=== PATIENT | female | born 1960 | race African-American/Black ===

== ENCOUNTER 2019-08-04 18:26 | Observation (INO) ==
[2019-08-04] MEDS ORDERED: TORADOL IM ONE (18:37)
[2019-08-04 18:59] LABS: BASO# 0.03 X1000 (0.0-0.2); BASO% 0.5 % (0.0-0.8); EOS# 0.11 X1000 (0.0-0.7); EOS% 1.9 % (0.0-10.0); HEMATOCRIT 39.2 % (37.0-47.0); HEMOGLOBIN 12.7 g/dL (12.0-16.0); IMM GRAN# 0.04 X1000 (0.0-0.04); IMM GRAN% 0.7 % (0.0-0.5); LYMPH# 1.84 X1000 (1.2-3.4); LYMPH% 32.1 % (20.5-51.1); MCH 28.9 PG (27-31); MCHC 32.4 g/dL (33-37); MCV 89.1 FL (81-99); MONO# 0.32 X1000 (0.11-0.59); MONO% 5.6 % (1.7-9.3); NEUT% 59.2 % (42.2-75.2); PLT 274 X1000 (130-400); RDW 12.9 % (11.5-14.5); WBC 5.74 X1000 (4.8-10.8)
--- NOTE | 2019-08-04 19:15 | EKG Report ---
Test Performed on : 08/04/2019 6:42:41 PM Test Reason : chest pain Blood Pressure : / mmHG Vent. Rate : 072 BPM Atrial Rate : 072 BPM P-R Int : 148 ms QRS Dur : 070 ms QT Int : 370 ms P-R-T Axes : 046 014 011 degrees QTc Int : 405 ms Normal sinus rhythm. Possible Anterior infarct (cited on or before 28-MAY-2016) Abnormal ECG When compared with ECG of 26-FEB-2017 15:18, No significant change was found Confirmed by Kavin Vásquez MD ([id number]) on 08/20/2019 7:37:24 AM
[2019-08-04 19:19] LABS: AGAP 13; ALBUMIN 4.5 g/dL (3.5-5.0); ALKALINE PHOSPHATASE 92 U/L (32-104); BUN 17 mg/dL (8-22); CALCIUM 9.6 mg/dL (8.8-10.2); CHLORIDE 104 mmol/L (98-107); COSMO 285; CREATININE 0.9 mg/dL (0.5-0.9); ESTIMATED GFR > 60; GLUCOSE 107 mg/dL (70-104); GOT 18 U/L (10-30); GPT 14 U/L (10-36); POTASSIUM 3.8 mmol/L (3.5-5.1); SODIUM 142 mmol/L (136-145); TCO2 25 mmol/L (25-35); TOTAL PROTEIN 7.2 g/dL (6.3-8.3)
--- NOTE | 2019-08-04 19:35 | Diag Imaging Result Doc PS360 ---
EXAM: CHEST-2 VIEWS - 08/04/2019 HISTORY: chest pain TECHNIQUE: Chest two views COMPARISON: 02/26/2017 FINDINGS: Heart size appears within normal limits and stable. There is transvenous cardiac pacemaker again seen. The lungs appear clear. There is no pleural effusion or pneumothorax identified. There are thoracic dextroscoliosis and mild spondylosis noted. IMPRESSION: No evidence of acute disease. Electronically signed by Lan Madrid 08/04/2019 7:32 PM
[2019-08-04] MEDS ORDERED: ASPIRIN PO ONE (19:57)
[2019-08-04] MEDS ORDERED: NITROGLYCERIN SL PRN (19:57)
--- NOTE | 2019-08-04 20:35 | PROVIDER DOCUMENTATION ---
This chart was entered by Jami Kidd Scribe, acting as scribe for Tye Hancock MD. HPI-Chest Pain - General Chief Complaint: Chest Pain Stated Complaint: SOB Time Seen by Provider: 08/04/19 19:48 Source: patient Allergies/Adverse Reactions: Patient Allergies Allergy/AdvReac Type Severity Reaction Status Date / Time Iodinated Contrast Media Allergy Severe ITCHING Verified 11/02/15 11:44 cefuroxime [From Ceftin] Allergy Unknown Verified 02/26/17 16:16 erythromycin base Allergy ITCHING Verified 11/02/15 11:44 tramadol Allergy ITCHING Verified 11/02/15 11:44 Home Medications: Home Medication List Medication Instructions Recorded Confirmed Last Taken Type Albuterol Sulfate [Proair 2 puff INH Q4H PRN 02/26/17 02/26/17 02/26/17 09:00 History Respiclick] Cetirizine HCl [Zyrtec] 10 mg PO DAILY 02/26/17 02/26/17 02/26/17 09:00 History Duloxetine [Cymbalta] 60 mg PO DAILY 02/26/17 02/26/17 02/26/17 09:00 History Fluticasone 50 Mcg Nasal [place] 02/26/17 Unknown History [Flonase] Furosemide [Lasix] 1.5 tab PO BID 02/26/17 02/26/17 02/26/17 09:00 History Gabapentin 300 mg PO TID 02/26/17 02/26/17 02/26/17 09:00 History Hydrocodone/Acetaminophen [[place] 1 tab PO BID PRN 02/26/17 02/26/17 02/26/17 09 :00 History 5-325 Tablet] Lisinopril 10 mg PO DAILY 02/26/17 02/26/17 02/26/17 09:00 History Mometasone/Formoterol [Dulera 200 2 puff INH DAILY 02/26/17 02/26/17 02/26/17 09:00 History Mcg/5 Mcg Inhaler] Naproxen 500 mg PO BID PRN PRN #30 tablet 02/26/17 Unknown Rx Pantoprazole [Protonix] 40 mg PO DAILY@0700 02/26/17 02/26/17 02/26/17 09:00 History Potassium Chloride 2 tab PO DAILY 02/26/17 02/26/17 02/26/17 09:00 History Tizanidine HCl [Zanaflex] 0.5 - 1 tab PO 02/26/17 02/26/17 09:00 History Trazodone [Desyrel] 0.5 - 1 tab PO DAILY PRN 02/26/17 02/26/17 Unknown History Loperamide [Imodium] 2 mg PO PRN PRN #20 cap MDD 6 06/07/19 Unknown Rx capsules Ondansetron Odt [Zofran 4 mg Odt] 4 mg PO Q6H PRN PRN #15 tab 06/07/19 Unknown Rx - History of Present Illness-CP Nature of Presenting Problem: 59 yof c/o left sided cp radiating down left arm starting few hours ago. pt sts pain is sharp in nature and 8/10. pt has hx of HTN, has pacemaker. pt has family hx opf heart dz, and is a nonsmoker. Location: reports: other (left sided) Chest Pain Radiation: reports: arms (left) Quality of Pain: reports: sharp Severity in ED: mild Onset/Duration: 4-6 hours ago Timing: still present Context/Activities at Onset: reports: none Modifying Factors: improves with: nothing Associated Symptoms: denies: nausea, shortness of breath, vomiting Review of Systems - Adult - REVIEW OF SYSTEMS - ADULT Constitutional: reports: no symptoms reported. denies: chills, fever, fatique Eyes: reports: no symptoms reported Ears, Nose, Mouth & Throat: reports: no symptoms reported Cardiovascular: reports: see HPI, chest pain. denies: poor circulation, PND, syncope Respiratory: reports: no symptoms reported Gastrointestinal: reports: no symptoms reported Genitourinary: reports: no symptoms reported Musculoskeletal: reports: see HPI, bone pain (left arm). denies: frequent leg cramps, muscle weakness, neck pain Integumentary: reports: no symptoms reported Neurological: reports: no symptoms reported Psychiatric: reports: no symptoms reported Endocrine: reports: no symptoms reported Hematologic/Lymphatic: reports: no symptoms reported Allergic/Immunologic: reports: no symptoms reported All Other Systems: Reviewed and Negative Past History - Adult - PAST MEDICAL HISTORY-ADULT Review of Records: reports: Nursing Assessment Review, Medications Reviewed, Social history reviewed & non-contributory. Major Childhood Illnesses: reports: denies history Cardiovascular: reports: HTN, pacemaker Respiratory: reports: sleep apnea Gastrointestinal: reports: GERD Obstetrical/Gynecological: reports: denies history Genitourinary: reports: denies history Musculoskeletal: reports: denies history Neurological: reports: other (neuropathy) Endocrine/Immune: reports: denies history, other (lymphadema) Other Conditions: reports: denies history - PRIOR SURGERIES/PROCEDURES Surgical/Procedure History: reports: pacemaker, hysterectomy, other (breast biopsy) - IMMUNIZATION STATUS Childhood Immunizations: See Nurse Assessment Flu Vaccine: See Nurse Assessment - FAMILY HISTORY Family History: reviewed, not pertinent - SOCIAL HISTORY Smoking: non-smoker Substance Use: none/never Physical Exam-General - PHYSICAL EXAM-ADULT Initial Vital Signs Reviewed: Yes - CONSTITUTIONAL General Appearance: appears well, alert, no apparent distress - EYES Eyes: PERRL/EOMI, pink conjunctivae - HEAD, EARS, NOSE, MOUTH & THROAT HENMT: normocephalic/atraumatic, moist mucous membranes, normal ENT inspection - NECK Neck: non-tender, full range of motion, supple, normal inspection - RESPIRATORY Respiratory: chest non-tender, lungs clear, normal breath sounds - CARDIOVASCULAR Cardiovascular: normal peripheral pulses, regular rate, rhythm, no edema, no gallop, no JVD, no murmur. negative: JVD, bradycardia, tachycardia, extra beats, friction rub, irregularly irregular - GASTROINTESTINAL (ABDOMEN) Abdominal Exam: normal bowel sounds, non tender, soft - LYMPHATIC Lymphatic: no adenopathy - MUSCULOSKELETAL Back Exam: normal inspection, no CVA tenderness, no vertebral tenderness Extremity: normal range of motion, non-tender, normal inspection Peripheral Pulses: radial (R): 2+, radial (L): 2+ - SKIN Integumentary: normal color, normal turgor, warm/dry - NEUROLOGIC Neurologic: grossly normal, no motor/sensory deficits - PSYCHIATRIC Psych/Mental Status: normal mood/affect, normal thought content, normal thought process, oriented x 3 - HEART Score HEART Score: History: Moderately Suspicious HEART Score: ECG: Non-Specific Repolarization Disturbance/LBBB/PM HEART Score: Age: 45-65 Years HEART Score: Risk Factors for Atherosclerotic Disease: 1 or 2 Risk Factors HEART Score: Troponin: < or = Normal Limit Total HEART Score:: 4 Progress - PLAN OF CARE/RESULTS Progress/Plan/Lab Results: Vital Signs - 8 hr 08/04/19 18:32 Temperature 98.4 F Pulse Rate 74 Respiratory Rate 20 Blood Pressure 141/82 O2 Sat by Pulse Oximetry 99 Laboratory Results - last 24 hr 08/04/19 08/04/19 08/04/19 18:48 18:48 18:48 WBC 5.74 RBC 4.40 Hgb 12.7 Hct 39.2 MCV 89.1 MCH 28.9 MCHC 32.4 L RDW Std Deviation 12.9 Plt Count 274 MPV 11.0 H Immature Gran % (Auto) 0.7 H Neut % (Auto) 59.2 Lymph % (Auto) 32.1 [place] % (Auto) 5.6 Eos % (Auto) 1.9 Baso % (Auto) 0.5 Immature Gran # (Auto) 0.04 Neut # (Auto) 3.40 Lymph # (Auto) 1.84 [place] # (Auto) 0.32 Eos # (Auto) 0.11 Baso # (Auto) 0.03 Sodium Potassium Chloride Carbon Dioxide Anion Gap BUN Creatinine Estimated GFR/1.73 m2 BUN/Creatinine Ratio Glucose Calculated Osmolality Calcium Total Bilirubin AST ALT Alkaline Phosphatase Creatine Kinase 143 Troponin T < 0.010 Total Protein Albumin Globulin Albumin/Globulin Ratio 08/04/19 18:48 WBC RBC Hgb Hct MCV MCH MCHC RDW Std Deviation Plt Count MPV Immature Gran % (Auto) Neut % (Auto) Lymph % (Auto) [place] % (Auto) Eos % (Auto) Baso % (Auto) Immature Gran # (Auto) Neut # (Auto) Lymph # (Auto) [place] # (Auto) Eos # (Auto) Baso # (Auto) Sodium 142 Potassium 3.8 Chloride 104 Carbon Dioxide 25 Anion Gap 13 BUN 17 Creatinine 0.9 Estimated GFR/1.73 m2 > 60 BUN/Creatinine Ratio 19 Glucose 107 H Calculated Osmolality 285 Calcium 9.6 Total Bilirubin 0.30 AST 18 ALT 14 Alkaline Phosphatase 92 Creatine Kinase Troponin T Total Protein 7.2 Albumin 4.5 Globulin 3.0 Albumin/Globulin Ratio 2.0 Orders Category Date Time Status CHEST-2 VIEWS [RAD] Stat Exams 08/04/19 18:37 Completed CBC WITH DIFF [HEME] Stat Lab 08/04/19 18:48 Completed CK PROFILE [SP CHEM] Stat Lab 08/04/19 18:48 Completed COMPREHENSIVE METABOLIC PANEL [CHEM] Stat Lab 11/20/19 18:48 Completed TROPONIN T Stat Lab 08/04/19 18:48 Completed Aspirin Med 08/04/19 19:57 Discontinued 325 mg PO NOW ONE Nitroglycerin Sl [Nitroglycerin] Med 08/04/19 19:57 Active 0.4 mg SL Q5M PRN PRN EKG [EKG] Stat Ther 08/04/19 18:37 Draft Result Diagrams: 08/04/19 18:48 08/04/19 18:48 - EKG 1 Time of EKG reading by physician:: 18:42 EKG Read and Signed by:: Tristan Douglass EKG Interpretation (*Must complete 3 of following elements*): Abnormal Rate: 72 Rhythm: NSR [place]: normal QRS: normal [place] Interval: normal ST Wave: normal Comments: possible anterior infarct, age undetermined - CONSULTS/PCP/HOSPITALIST Notification #1 *Consult/PCP/Hospitalist*: Dr Kraus Time Discussed: 20:34 Consult Disposition: Admit Departure - Departure Date of Disposition Decision: 08/04/19 Time of Disposition Decision: 20:34 DIAGNOSIS: Chest pain, HTN (hypertension) Disposition: ADMITTED INPATIENT 09 Certified Medical Emergency: Emergent Condition: Fair Referrals and Follow-Ups: Flavia Garces MD [Primary Care Provider] - - Critical Care Note This patient required my direct & personal management of CC.: No Attestation - Physician/ JOHNATHON Attestation Patient care was provided by Advanced Practice Provider:: No The physician spent face to face time with patient:: Yes Advanced Practice Provider documentation review:: Supervising physician onsite and consulted in the evaluation and care of this patient. The physician did have a face to face encounter with the patient. This chart was documented by the indicated scribe, (Jami Kidd Scribe) and accurately reflects the services I performed and decisions made by me, Tye Hancock MD, as attested by the provider's signature.
[2019-08-04] MEDS ORDERED: TYLENOL PO PRN (22:50)
[2019-08-04] MEDS ORDERED: TORADOL IV PRN (22:50)
[2019-08-05] MEDS ORDERED: ASPIRIN PO SCH (09:00)
[2019-08-05] MEDS ORDERED: NORCO-5 PO PRN (09:33)
[2019-08-05] MEDS ORDERED: SALINE LOCK IV FLUID XX ONE (09:36)
[2019-08-05] MEDS ORDERED: ZOFRAN IV PRN (09:36)
[2019-08-05] MEDS ORDERED: LOVENOX SUBQ SCH (09:45)
[2019-08-05] MEDS ORDERED: KLOR-CON PO SCH (09:45)
[2019-08-05] MEDS ORDERED: LASIX PO SCH (09:45)
[2019-08-05] MEDS ORDERED: CYMBALTA PO SCH (09:45)
[2019-08-05] MEDS ORDERED: MINOCIN PO SCH (09:45)
[2019-08-05] MEDS ORDERED: PRINIVIL PO SCH (09:45)
[2019-08-05] MEDS ORDERED: CELEBREX PO SCH (09:45)
[2019-08-05] MEDS ORDERED: LOPRESSOR PO SCH (09:45)
--- NOTE | 2019-08-05 09:59 | EKG Report ---
Test Performed on : 08/05/2019 09:50:51 AM Test Reason : CHEST PAIN Blood Pressure : / mmHG Vent. Rate : 065 BPM Atrial Rate : 065 BPM P-R Int : 172 ms QRS Dur : 072 ms QT Int : 392 ms P-R-T Axes : 056 019 030 degrees QTc Int : 407 ms Normal sinus rhythm. Cannot rule out Anterior infarct (cited on or before 28-MAY-2016) Abnormal ECG When compared with ECG of 04-AUG-2019 18:42, (Unconfirmed) Nonspecific T wave abnormality has replaced inverted T waves in Inferior leads Confirmed by Kavin Vásquez MD ([id number]) on 08/20/2019 7:35:58 AM
[2019-08-05] MEDS ORDERED: LEXISCAN ONE (10:55)
--- NOTE | 2019-08-05 11:14 | GRADED EXERCISE REPORT ---
DATE: 08/05/2019 STUDY: Lexiscan EKG interpretation. ORDERING PHYSICIAN: Santi for Dr. Kraus. INDICATION: Chest pain. SUMMARY: Baseline EKG did not show any significant ST changes. She underwent Lexiscan infusion 0.4 mg per protocol. She did develop some relative tachycardia. She did develop some chest pressure during the test. However, there was no significant ST changes noted. The test was felt to be clinically positive, but electrically negative. Peak heart rate 127, peak blood pressure 140/72. The patient tolerated procedure. Myocardial perfusion reported separately. cc: MD Lance Ferguson MD
[2019-08-05 13:52] LABS: HEMOGLOBIN A1C 5.7 % (4.8-6.0)
[2019-08-05] MEDS ORDERED: ROBAXIN PO ONE (14:02)
[2019-08-05] MEDS ORDERED: ROBAXIN PO PRN (14:02)
[2019-08-05 14:24] LABS: FREE T4 1.26 ng/dL (0.93-1.70); TSH 2.02 uIUmL (0.27-4.20)
[2019-08-05] MEDS ORDERED: NEURONTIN PO SCH (15:00)
--- NOTE | 2019-08-05 15:01 | Diag Imaging Result Document ---
PROCEDURE NAME: MYOCARDIAL PERF SCAN, STR/REST - 08/04/2019 STUDY: Rest/stress Lexiscan myocardial perfusion study. REQUESTED BY: Hospitalist Service at [facility]. INDICATION: Chest pain. DESCRIPTION: The patient came into the nuclear laboratory, received resting injection of technetium 99 sestamibi 12.9 mCi. Multiple tomographic views of the cardiac structures were obtained at rest. Subsequently, the patient underwent infusion of Lexiscan 0.[address] Benítez supervised the study. At peak infusion, injected with technetium 99 sestamibi 33.8 mCi. Multiple tomographic views of the cardiac structures were obtained following the completion of the protocol. SUMMARY OF THE MYOCARDIAL PERFUSION PORTION OF THE STUDY: Dr. Benítez already reported the EKG portion of the test. Poststress tomographic views of the left ventricle showed normal homogeneous distribution of radiotracer throughout the entire left ventricular myocardium. There is no evidence of any postexercise defect. The rest images showed normal perfusion. Polar plots revealed the same. There is no evidence of any inducible ischemia nor myocardial scar. Gated SPECT showed normal left ventricular systolic function. Ejection fraction estimated is 86% with normal ventricular volumes, no wall motion abnormality. The lung/heart ratio is normal. TID is normal. SUMMARY: This study shows: 1. Normal poststress myocardial perfusion scan. There is no scintigraphic evidence of pharmacologically-induced myocardial ischemia. 2. Normal left ventricular systolic function, ejection fraction estimated at 86% with normal ventricular volumes, no wall motion abnormality. This study represents a low risk for ischemic events. Clinical correlation is recommended. cc: Kieran King MD [facility]
[2019-08-05 16:11] VITALS: BP 116/62
[2019-08-05] MEDS ORDERED: ZOFRAN ODT PO ONE (19:11)
[2019-08-05] MEDS ORDERED: TORADOL ONE (19:16)
--- NOTE | 2019-08-05 21:03 | HISTORY AND PHYSICAL ---
PRIMARY CARE PROVIDER: Dr. Flavia Garces. PRIMARY HAZARDOUS WASTE MATERIAL TECHNICIAN: Dr. Vega. CHIEF COMPLAINT: Chest pain and left shoulder pain down the arm. HISTORY OF PRESENT ILLNESS: Ms. Marissa Sloan is a 59-year-old female with a medical history of pulmonary hypertension, asthma, hypertension, sleep apnea with CPAP, chronic headaches, lymphedema and seasonal allergies. She is here with complaints of chest pain. She states that yesterday around 5:30, she started feeling the pain in her left chest and down the left arm. She went to go grab food from a fast food restaurant and was on her way back when the pain worsened, to the point of nausea, shortness of breath and diaphoresis. She presented to the emergency department here at [facility] with these complaints, and has had 3 sets of negative cardiac enzymes and no ST elevations. The pain has eased up in the arm. Now she feels a little bit of numbness there, and she has gone for a stress test this morning. PAST MEDICAL HISTORY: 1. Pulmonary artery hypertension with a pulmonary pressure of 46 mmHg. She has a stable ejection fraction of 65%. 2. Asthma. 3. Hypertension. 4. Obstructive sleep apnea, with CPAP. 5. Chronic headaches. 6. Lymphedema. 7. Poor lower extremity circulation and right arm circulation. 8. Seasonal allergies. 9. 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 She is on minocycline chronically for this. 10. GERD. PAST SURGICAL HISTORY: 1. Bilateral tubal ligation. 2. Permanent pacemaker that causes bradycardia. 3. Left breast biopsy, benign. 4. section. 5. Almost a total hysterectomy. She still has one ovary. 6. Anterior cervical neck fusion. 7. Bilateral carpal tunnel. 8. Right thumb trigger release. SOCIAL HISTORY: Denies tobacco, alcohol or illicit drug use. She lives at home alone. 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 FAMILY HISTORY: Mother had coronary artery stenosis, Alzheimer disease and an AR at 88. She said her father had a bad heart essentially all of his life since the age of 19. She is unsure of what it was, but he of a heart attack at 72. ALLERGIES: Iodine, Ceftin, erythromycin and tramadol. HOME MEDICATIONS: 1. Celecoxib 200 mg p.o. daily. 2. Cymbalta 60 mg p.o. daily. 3. Neurontin 300 mg p.o. t.i.d. 4. Lasix 60 mg p.o. twice daily. 5. Lisinopril 10 mg p.o. daily. 6. Metoprolol 50 mg p.o. daily. 7. Minocycline 50 mg p.o. daily. 8. [place] 1 tablet p.o. twice daily p.r.n. 9. Potassium chloride 40 mEq p.o. daily. 10. Protonix 40 mg p.o. daily. REVIEW OF SYSTEMS: Fourteen-point review of systems are complete and all are negative except for those mentioned above in HPI. PHYSICAL EXAMINATION: VITAL SIGNS: Temperature 97.6 degrees, heart rate 75, respiratory rate 20, blood pressure 123/79, O2 saturation is 100% on room air. GENERAL: Ms. Marissa Sloan is a 59-year-old female. She is in no acute distress. She is able to answer questions appropriately. HEENT: Atraumatic, normocephalic. Pupils equal, round, reactive to light. Extraocular movements intact. Mucous membranes are dry. NECK: Trachea midline. CARDIOVASCULAR: S1, S2. Regular rate and rhythm. No rubs, gallops or murmurs. She has 2+ lower extremity edema. Dorsalis pedal pulses +2, radial pulses +2. Negative JVD or carotid bruits. PULMONARY: Clear to auscultation. Bilateral breath sounds. No accessory muscle use or work of breathing noted. GASTROINTESTINAL: Soft, nontender, nondistended. Positive bowel sounds x4. EXTREMITIES: Moves all extremities equally. Full range of motion. NEUROLOGIC: Alert and oriented x3. Follows commands. Sensory is intact. SKIN: Warm, dry and intact. LABORATORY DATA: White blood cells 5000, hemoglobin 12, hematocrit 39, platelet count 274,000. Sodium 142, potassium 3.8, BUN 17, creatinine 0.9, glucose 107. Hemoglobin A1c is 5.7. Calcium 9.6, bilirubin 0.30, AST 18, ALT 14. CK 143, troponin less than 0.01 x 3. Triglycerides 65, total cholesterol 164, HDL 64. TSH 2.02, free T4 is 1.26. DIAGNOSTIC DATA: Chest x-ray: No acute disease. EKG: No ST elevations, rate 72, normal sinus rhythm, QTc is 405. EKG this morning: Normal sinus rhythm, rate 65, QTc is 407. Part of a stress test was done. Exercise stress test was clinically positive, electrically negative. Heart rate actually looks like 60s and 70s up to 127, and she did feel a little pressure. ASSESSMENT AND PLAN: 1. Chest pain with radiation down left arm and shoulder. We will add muscle relaxer, as when I palpated she was able to feel tenderness to the chest wall in the left side and tenderness when moving the arm. Still awaiting the rest of the stress test results. She is currently on aspirin and beta-severiano. 2. History of pulmonary artery hypertension. She is getting Lasix. 3. History of asthma, but no exacerbation. 4. Hypertension. Continue home medications. 5. Sleep apnea. Wears continuous positive airway pressure at night. 6. 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 She is on minocycline. We will go ahead and continue that. 7. Deep venous thrombosis prophylaxis. Lovenox. Dictated by FRANKIE Khalil for Lance Roberts MD Addendum: Patient seen and examined by myself. Agree with FRANKIE note. It reflects my assessment and plan. Patient is being admitted to hospital for chest pain work up. Will order Lexiscan and echocardiogram and will go from there. cc: FRANKIE Khalil MD MTDD
[2019-08-06] MEDS ORDERED: PROTONIX PO SCH (07:00)
--- NOTE | 2019-08-06 07:06 | ECHO REPORT ---
ORDER DATE: 08/05/2019 INTERPRETING PHYSICIAN: Dr. King This is a 2D echocardiogram. REQUESTING PHYSICIAN: Requested by the ER physician at [facility]. CLINICAL INDICATIONS: Chest pain. M-MODE MEASUREMENTS: Left ventricle end diastole: 4.5 cm. Left ventricle end systole: 2.7 cm. Posterior wall: 0.9 cm. Interventricular septum: 0.9 cm. Left atrium: 3.8 cm. Aortic diameter: 2.9 cm. SUMMARY OF 2-DIMENSIONAL IMAGING: The left ventricular function is normal. Ejection fraction is 57%. There is no wall motion abnormality noted. There seems to be a pacemaker lead within the right ventricle. Tricuspid valve shows mild to moderate degree of regurgitation. Pulmonary pressure is estimated at 51 mmHg. Pulmonic valve is normal. Mitral valve is normal with mild degree of regurgitation. Pulse wave Doppler of mitral inflow shows mild reversal of the E/A ratio. Ratio is 0.8. Tissue Doppler of septal and lateral mitral annulus averages 8 cm per second. There is no diastolic dysfunction. The aortic valve opens normally. Color flow mapping indicates trace aortic regurgitation. There is no stenosis. The inferior vena cava is not dilated. There is no pericardial effusion, mass and no thrombus. Right-sided chambers do not appear to be significantly dilated. Left atrium is probably at the upper limits of normal. Clinical correction recommended. cc: MD Lance Desai MD
--- NOTE | 2019-08-07 15:47 | DISCHARGE SUMMARY ---
ADMISSION DATE: 08/04/2019 DISCHARGE DATE: 08/05/2019 ADMISSION DIAGNOSES AND DISCHARGE DIAGNOSES: 1. Chest pain with radiation down left arm and shoulder, likely muscle related. 2. History of pulmonary artery hypertension. She is getting Lasix. 3. History of asthma. No exacerbation. 4. Hypertension. 5. Sleep apnea. Wears CPAP at night. 6. 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 She is on minocycline. PHYSICIAN CONSULTATIONS: None. SURGERIES OR PROCEDURES: She had a stress test performed on the , it was ordered on the . Normal post-stress myocardial perfusion scan, normal LV systolic function with EF 86%. The exercise stress test was that she did develop some chest pressure, but no significant ST changes. It was felt to be clinically positive but electrically negative. Heart rate actually went up to 127 with the Lexiscan. HOSPITAL COURSE: Ms. Marissa Sloan is a 59-year-old female with a medical history of pulmonary hypertension, asthma, hypertension, sleep apnea on CPAP, chronic headaches, that came in with complaints of chest pain that would radiate down the left arm. She stated that the day before around 5:30, started feeling pain in the left chest and down the left arm after running to a fast food restaurant to get some food and on her way back is when the pain worsened to the point of nausea, shortness of breath and diaphoresis. She presented to the emergency department here at [facility] with the complaints and there was 3 sets of negative cardiac enzymes. There were no ST elevations. She went ahead and had a stress test performed which was negative and so it was really felt to be muscle related as the pain was reproducible with palpation and movement of the left arm. DISCHARGE VITAL SIGNS: Temperature 97.6 degrees, heart rate 67, respiratory rate 18, blood pressure 116/62, O2 saturation 98% on room air. DISCHARGE LAB DATA: White blood cells 5000, hemoglobin 12, hematocrit 39, platelet count 274,000. Sodium 142, potassium 3.8, BUN 17, creatinine 0.9, glucose 107. A1c was 5.7. All cardiac enzymes were negative. Triglycerides 65, total cholesterol is 164. TSH 2.02, free T4 was 1.26. PERTINENT IMAGING: Chest x-ray: No evidence of acute disease. Had a echocardiogram, ejection fraction 57%. Pulmonary arterial pressure was hypertensive at 51 mmHg. No diastolic dysfunction. DISCHARGE MEDICATIONS: 1. Robaxin 500 mg p.o. q.6 hours p.r.n. 2. Protonix 40 mg p.o. daily. 3. Potassium chloride 40 mEq p.o. daily. 4. Pierre Part 5 one tablet p.o. twice daily p.r.n. 5. Minocycline 50 mg p.o. daily. 6. Metoprolol tartrate 50 mg p.o. daily. 7. Lisinopril 10 mg p.o. daily. 8. Lasix 40 mg p.o. twice daily. 9. Neurontin 300 mg p.o. t.i.d. 10. Cymbalta 60 mg p.o. daily. 11. Celecoxib 200 mg p.o. daily. DISCHARGE DIET: Regular. DISCHARGE ACTIVITY: As tolerated. PHYSICIAN FOLLOWUP: Dr. Garces. DISCHARGE INSTRUCTIONS: If your condition changes, contact physician and/or return to the emergency department. Changes may include, but not limited to shortness of breath, increased fatigue, excessive bleeding, unexplained weight loss or gain, unmanageable pain, signs or symptoms of infection. DISCHARGE DISPOSITION: Home. Dictated by FRANKIE Khalil for Lance Roberts MD Addendum: Patient seen and examined by myself. Agree with FRANKIE note. It reflects my assessment and plan. Patient is being discharged in stable condition. Follow up with PCP in a week. cc: FRANKIE Khalil MD [facility]
== END 2019-08-05 19:25 | disposition home or self-care (01) | DRG 313 ==
LOC: P.ED 18:26 → INTOOBSV 18:27 → P.MEDSURG 21:51
PROVIDERS: ADMIT Internal Medicine; ATTEND Internal Medicine